=== PATIENT | male | born 2000 | race Caucasian/White ===

== ENCOUNTER 2020-08-21 17:23 | Emergency (ER) | payer OTHER ==
[2020-08-21] MEDS ORDERED: Lidocaine 1% 20 ML MDV ONE (17:44)
--- NOTE | 2020-08-21 18:05 | EDM.PDOC ---
ED HPI GENERAL MEDICAL PROBLEM - General Stated Complaint: CYST ON LOWER BACK Time Seen by Provider: 08/21/20 17:39 Source of Information: Reports: Patient History Limitations: Reports: No Limitations - History of Present Illness INITIAL COMMENTS - FREE TEXT/NARRATIVE: Patient presents with a painful cyst that started a week ago. It mostly just hurts to sit. He has noticed a little drainage. No fever. - Related Data Allergies Allergy/AdvReac Type Severity Reaction Status Date / Time No Known Allergies Allergy Verified 08/21/20 17:43 ED ROS GENERAL - Review of Systems Review Of Systems: See Below Constitutional: Denies: Fever, Chills, Malaise, Weakness HEENT: Reports: No Symptoms Respiratory: Denies: Shortness of Breath Cardiovascular: Reports: No Symptoms Endocrine: Reports: No Symptoms GI/Abdominal: Denies: Constipation, Diarrhea, Vomiting Musculoskeletal: Reports: No Symptoms Skin: Reports: No Symptoms ED EXAM, GENERAL - Physical Exam Exam: See Below Exam Limited By: No Limitations General Appearance: Alert, WD/WN, No Apparent Distress Eye Exam: Bilateral Eye: EOMI, Normal Inspection, PERRL Ears: Normal External Exam, Hearing Grossly Normal Nose: Normal Inspection, No Blood Throat/Mouth: Normal Inspection, Normal Lips, Normal Voice, No Airway Compromise Head: Atraumatic, Normocephalic Neck: Normal Inspection, Full Range of Motion Respiratory/Chest: No Respiratory Distress, Lungs Clear, Normal Breath Sounds, No Accessory Muscle Use Cardiovascular: Regular Rate, Rhythm, No Murmur Rectal (Males) Exam: Perirectal Abscess (in the superior gluteal crease. There is pus oozing out on exam. Cleaned with betadine, anesthetized with lidocaine and incised with a 15-blade releasing copious pus. There is still induration on the left side of crease but not fluctuant and couldn't express more pus. ) Back Exam: Normal Inspection, Full Range of Motion Extremities: Normal Inspection, Normal Range of Motion Neurological: Alert, Oriented, Normal Cognition, Normal Gait Psychiatric: Normal Affect, Normal Mood Skin Exam: Warm, Dry, Intact, Normal Color, No Rash ED I&D PROCEDURES - I&D Site: anorectal Skin prep: Providone-Iodine (Betadine) Local anesthesia - Lidocaine (Xylocaine): 2% Plain Local Anesthetic Volume: 5cc Area Incised With: 15 Blade Drainage: Purulent, Large Amount Probed to Break Up Loculations: No Packed With: None Sterile Dressinx4(s) Complications: No Course - Vital Signs Last Recorded V/S: Last Vital Signs Temp 98.9 F 08/21/20 17:39 Pulse 99 08/21/20 17:39 Resp 18 08/21/20 17:39 BP 172/77 H 08/21/20 17:39 Pulse Ox 98 08/21/20 17:39 - Re-Assessments/Exams Free Text/Narrative Re-Assessment/Exam: 08/21/20 18:23 Discussed findings and treatment plan with patient and he agreed with plan. I and D as above. Patient tolerated this well. Discharged to home in stable condition. Departure - Departure Time of Disposition: 18:07 Disposition: Home, Self-Care 01 Condition: Good Clinical Impression: Eliz-rectal abscess - Discharge Information Instructions: Anorectal Abscess Referrals: Fabiola Duckworth MD [Primary Care Provider] - Additional Instructions: Take antibiotic three times a day as directed. Change the gauze dressing as needed to catch drainage. Follow up with your PCP on Monday or Monday for recheck. Recheck sooner if worsening. You may use Ibuprofen 400-600 mg and/or Tylenol 500-1000 mg three times a day as needed for pain. Sepsis Event Note (ED) - Evaluation Sepsis Screening Result: No Definite Risk - Focused Exam Vital Signs: Vital Signs Temp Pulse Resp BP Pulse Ox 08/21/20 17:39 98.9 F 99 18 172/77 H 98
[2020-08-21] MEDS ORDERED: Cephalexin 250 MG Cap PO ONE ×2 (18:06→18:10)
[2020-08-21] MEDS ORDERED: Lidocaine 1% 50 ML MDV INJECT SCH (18:15)
== END 2020-08-21 18:15 | disposition home or self-care (01) ==
LOC: KA.ED 17:23
DX: K61.1 Rectal abscess (principal)
CPT/HCPCS: 10060; 46050; 99282-25; 99283; A9270-GY; J2001